=== PATIENT | female | born 1930 | race Caucasian/White ===

== ENCOUNTER 2017-12-17 15:05 | Inpatient (IN) ==
[2017-12-17] MEDS ORDERED: PANTOPRAZOLE 40 MG VIAL IV STA (15:36)
[2017-12-17] MEDS ORDERED: SODIUM CHLORIDE 0.9% 1,000 ML IV PRN (15:37)
[2017-12-17] MEDS ORDERED: PANTOPRAZOLE 40 MG VIAL IV ONE (16:06)
[2017-12-17 16:14] LABS: Basophils % 0.2 % (0.0-0.8); Hemoglobin 8.5 GM/DL (12.0-16.0); Immature Granulocytes % 0.5 %; Immature Granulocytes Absolute 0.05 #; Lymphocytes # 1.7 10*3/uL (1.4-4.0); Lymphocytes % 15.7 % (21.3-54.2); Mean Corpuscular HGB Conc 32.7 GM/DL (32-36); Mean Corpuscular Hemoglobin 31 PG (27-34); Mean Corpuscular Volume 93.9 FL (87-102); Mean Platelet Volume 9.1 FL (9.6-12.0); Monocytes # 0.6 10*3/uL (0.11-0.8); Monocytes % 5.4 % (1.7-12.7); Neutrophils # 8.3 10*3/uL (1.4-7.4); Neutrophils % 78.2 % (38.7-73.9); Platelet Count 227 T/CUMM (130-400); Red Blood Count 2.77 MC/CUMM (3.8-5.5); Red Cell Distribution Width 15.5 % (9.3-17.3); White Blood Count 10.6 T/CUMM (4-12)
[2017-12-17 16:30] LABS: PT Patient Result 10.2 SECS
[2017-12-17 16:33] LABS: Alanine Aminotransferase < 9 U/L (13-56); Albumin 3.2 G/DL (3.4-5.0); Alkaline Phosphatase 54 U/L (45-117); Aspartate Amino Transferase 20 U/L (0-37); Blood Urea Nitrogen 75 MG/DL (7-18); Calcium 8.4 MG/DL (8.5-10.1); Glucose 92 MG/DL (74-106); Magnesium 2.3 MG/DL (1.8-2.4); Osmolality,Calculated 300.4 MOS/KG (273-304); Potassium 4.1 MMOL/L (3.5-5.1); Sodium 140 MMOL/L (136-145); Total Protein 6.2 G/DL (6.4-8.3)
[2017-12-17] MEDS ORDERED: ONDANSETRON 4 MG/2 ML VIAL IV PRN (17:48)
[2017-12-17 21:42] LABS: Apearance,Urine CLEAR (Clear); Bacteria,Urine Occasional /HPF (Few); Bilirubin,Urine Negative (Negative); Blood, Urine Moderate mg/dL (Negative); Glucose,Urine (UA) Negative (Negative); Ketones,Urine Negative (Negative); Nitrite,Urine Negative (Negative); Protein,Urine Negative; RBC,Urine 7 /HPF (0-4); Squamous Epithelial Cell,Urine Occasional /HPF (0-10); Urine Color Yellow (Yellow); Urine Specific Gravity 1.012 (1.001-1.035); Urine Urobilinogen < 2.0 EU/DL (0.2-1.0); WBC,Urine 8 /HPF (0-6)
[2017-12-17] MEDS: METOPROLOL TARTRATE 50 MG TABLET PO SCH (21:59)
[2017-12-17] MEDS: PANTOPRAZOLE 40 MG VIAL IV SCH (21:59)
[2017-12-18 05:49] LABS: Basophils % 0.2 % (0.0-0.8); Eosinophils % 0.2 % (0.00-10.9); Hematocrit 29.3 VOL% (35.7-47.0); Immature Granulocytes % 0.5 %; Immature Granulocytes Absolute 0.05 #; Lymphocytes # 1.1 10*3/uL (1.4-4.0); Lymphocytes % 11.6 % (21.3-54.2); Mean Corpuscular HGB Conc 34.1 GM/DL (32-36); Mean Corpuscular Hemoglobin 30 PG (27-34); Mean Corpuscular Volume 89.1 FL (87-102); Mean Platelet Volume 9.5 FL (9.6-12.0); Monocytes # 0.8 10*3/uL (0.11-0.8); Monocytes % 8.9 % (1.7-12.7); Neutrophils # 7.2 10*3/uL (1.4-7.4); Neutrophils % 78.6 % (38.7-73.9); Platelet Count 160 T/CUMM (130-400); Red Blood Count 3.29 MC/CUMM (3.8-5.5); Red Cell Distribution Width 16.3 % (9.3-17.3); White Blood Count 9.2 T/CUMM (4-12)
[2017-12-18 06:17] LABS: Calcium 8.1 MG/DL (8.5-10.1); Osmolality,Calculated 295.3 MOS/KG (273-304); Potassium 3.6 MMOL/L (3.5-5.1)
[2017-12-18] MEDS: METOPROLOL TARTRATE 50 MG TABLET PO SCH ×2 (08:15→20:34)
[2017-12-18] MEDS: PANTOPRAZOLE 40 MG VIAL IV SCH ×2 (08:17→20:33)
[2017-12-18] MEDS: cefTRIAXone 1,000 MG in SYRINGE 1 EACH IV SCH (13:08)
[2017-12-18] MEDS: ISOSORBIDE MONONITRATE 30 MG TABLET PO SCH (14:39)
[2017-12-18] MEDS: DICLOFENAC 1% GEL 100 GM TUBE TOP SCH ×2 (16:09→20:37)
[2017-12-18] MEDS: CARBIDOPA/LEVODOPA 25-100 MG TABLET PO SCH (20:34)
[2017-12-18] MEDS: SIMVASTATIN 20 MG TABLET PO SCH (20:34)
[2017-12-19 05:22] LABS: Basophils % 0.5 % (0.0-0.8); Eosinophils # 0.1 10*3/uL (0.0-0.87); Eosinophils % 1.1 % (0.00-10.9); Hematocrit 26.9 VOL% (35.7-47.0); Hemoglobin 9.1 GM/DL (12.0-16.0); Immature Granulocytes % 0.4 %; Immature Granulocytes Absolute 0.02 #; Lymphocytes % 18.5 % (21.3-54.2); Mean Corpuscular HGB Conc 33.8 GM/DL (32-36); Mean Corpuscular Hemoglobin 31 PG (27-34); Mean Corpuscular Volume 91.5 FL (87-102); Mean Platelet Volume 9.2 FL (9.6-12.0); Monocytes # 0.7 10*3/uL (0.11-0.8); Monocytes % 12.4 % (1.7-12.7); Neutrophils # 3.7 10*3/uL (1.4-7.4); Neutrophils % 67.1 % (38.7-73.9); Platelet Count 146 T/CUMM (130-400); Red Blood Count 2.94 MC/CUMM (3.8-5.5); White Blood Count 5.6 T/CUMM (4-12)
[2017-12-19 05:59] LABS: Calcium 7.5 MG/DL (8.5-10.1); Osmolality,Calculated 285.4 MOS/KG (273-304); Potassium 3.2 MMOL/L (3.5-5.1)
[2017-12-19] MEDS: PANTOPRAZOLE 40 MG VIAL IV SCH ×2 (09:00→20:18)
[2017-12-19] MEDS: cefTRIAXone 1,000 MG in SYRINGE 1 EACH IV SCH (09:01)
[2017-12-19] MEDS: DICLOFENAC 1% GEL 100 GM TUBE TOP SCH ×3 (09:01→20:18)
[2017-12-19] MEDS ORDERED: LIDOCAINE 100 MG/5 ML SYRINGE ONE (11:40)
[2017-12-19] MEDS ORDERED: PROPOFOL 200 MG/20 ML VIAL IV ONE (11:40)
[2017-12-19] MEDS: CARBIDOPA/LEVODOPA 25-100 MG TABLET PO SCH ×2 (14:21→20:18)
[2017-12-19] MEDS: CHOLECALCIFEROL 1,000 UNIT TABLET PO SCH (14:21)
[2017-12-19] MEDS: METOPROLOL TARTRATE 50 MG TABLET PO SCH ×2 (14:22→20:18)
[2017-12-19] MEDS: ISOSORBIDE MONONITRATE 30 MG TABLET PO SCH (14:22)
[2017-12-19] MEDS: MAGNESIUM OXIDE 400 MG TABLET PO SCH (17:34)
[2017-12-19] MEDS: ACETAMINOPHEN 325 MG TABLET PO PRN (17:36)
[2017-12-19] MEDS: SIMVASTATIN 20 MG TABLET PO SCH (20:18)
[2017-12-20 08:08] LABS: Hematocrit 26.8 VOL% (35.7-47.0); Hemoglobin 8.9 GM/DL (12.0-16.0)
[2017-12-20] MEDS: ISOSORBIDE MONONITRATE 30 MG TABLET PO SCH (09:00)
[2017-12-20] MEDS: METOPROLOL TARTRATE 50 MG TABLET PO SCH ×2 (09:00→20:37)
[2017-12-20] MEDS: CHOLECALCIFEROL 1,000 UNIT TABLET PO SCH (09:00)
[2017-12-20] MEDS: MAGNESIUM OXIDE 400 MG TABLET PO SCH (09:01)
[2017-12-20] MEDS: CARBIDOPA/LEVODOPA 25-100 MG TABLET PO SCH ×2 (09:01→20:37)
[2017-12-20] MEDS: PANTOPRAZOLE 40 MG VIAL IV SCH ×2 (09:04→21:43)
[2017-12-20] MEDS: cefTRIAXone 1,000 MG in SYRINGE 1 EACH IV SCH (09:04)
[2017-12-20] MEDS: DICLOFENAC 1% GEL 100 GM TUBE TOP SCH ×3 (09:08→20:38)
[2017-12-20] MEDS: SIMVASTATIN 20 MG TABLET PO SCH (20:37)
[2017-12-20] MEDS: ACETAMINOPHEN 325 MG TABLET PO PRN (20:37)
[2017-12-21 06:02] LABS: Basophils % 0.4 % (0.0-0.8); Eosinophils # 0.1 10*3/uL (0.0-0.87); Eosinophils % 2.2 % (0.00-10.9); Hematocrit 26.6 VOL% (35.7-47.0); Hemoglobin 8.7 GM/DL (12.0-16.0); Immature Granulocytes % 0.4 %; Immature Granulocytes Absolute 0.02 #; Lymphocytes # 0.9 10*3/uL (1.4-4.0); Lymphocytes % 19.9 % (21.3-54.2); Mean Corpuscular HGB Conc 32.7 GM/DL (32-36); Mean Corpuscular Hemoglobin 30 PG (27-34); Mean Platelet Volume 9.3 FL (9.6-12.0); Monocytes # 0.5 10*3/uL (0.11-0.8); Monocytes % 11.7 % (1.7-12.7); Neutrophils % 65.4 % (38.7-73.9); Platelet Count 154 T/CUMM (130-400); Red Blood Count 2.86 MC/CUMM (3.8-5.5); Red Cell Distribution Width 15.5 % (9.3-17.3); White Blood Count 4.5 T/CUMM (4-12)
[2017-12-21 06:29] LABS: Calcium 7.8 MG/DL (8.5-10.1); Osmolality,Calculated 278.7 MOS/KG (273-304); Potassium 3.6 MMOL/L (3.5-5.1)
[2017-12-21] MEDS: CHOLECALCIFEROL 1,000 UNIT TABLET PO SCH (09:09)
[2017-12-21] MEDS: CARBIDOPA/LEVODOPA 25-100 MG TABLET PO SCH ×2 (09:09→20:31)
[2017-12-21] MEDS: MAGNESIUM OXIDE 400 MG TABLET PO SCH (09:09)
[2017-12-21] MEDS: ISOSORBIDE MONONITRATE 30 MG TABLET PO SCH (09:10)
[2017-12-21] MEDS: METOPROLOL TARTRATE 50 MG TABLET PO SCH ×2 (09:10→20:31)
[2017-12-21] MEDS: DICLOFENAC 1% GEL 100 GM TUBE TOP SCH ×3 (09:33→20:31)
[2017-12-21] MEDS: PANTOPRAZOLE 40 MG TABLET PO SCH ×2 (09:44→22:22)
[2017-12-21] MEDS: NISOLDIPINE 20 MG PO SCH (09:48)
[2017-12-21] MEDS: ACETAMINOPHEN 325 MG TABLET PO PRN ×2 (10:53→19:14)
[2017-12-21] MEDS: SIMVASTATIN 20 MG TABLET PO SCH (20:31)
[2017-12-21] MEDS: PANTOPRAZOLE 40 MG VIAL IV SCH (22:23)
[2017-12-21] MEDS: cefTRIAXone 1,000 MG in SYRINGE 1 EACH IV SCH (22:23)
[2017-12-22 05:32] LABS: Hematocrit 25.6 VOL% (35.7-47.0); Hemoglobin 8.9 GM/DL (12.0-16.0)
[2017-12-22] MEDS: MAGNESIUM OXIDE 400 MG TABLET PO SCH (08:52)
[2017-12-22] MEDS: CARBIDOPA/LEVODOPA 25-100 MG TABLET PO SCH (08:52)
[2017-12-22] MEDS: CHOLECALCIFEROL 1,000 UNIT TABLET PO SCH (08:53)
[2017-12-22] MEDS: ISOSORBIDE MONONITRATE 30 MG TABLET PO SCH (08:53)
[2017-12-22] MEDS: DICLOFENAC 1% GEL 100 GM TUBE TOP SCH (08:54)
[2017-12-22] MEDS: METOPROLOL TARTRATE 50 MG TABLET PO SCH (08:54)
[2017-12-22] MEDS: NISOLDIPINE 20 MG PO SCH (08:54)
[2017-12-22] MEDS: PANTOPRAZOLE 40 MG TABLET PO SCH (08:54)
[2017-12-22] MEDS ORDERED: POLYETHYLENE GLYCOL POWDER 17 GM PACK PO SCH (10:30)
[2017-12-22] MEDS ORDERED: MAGNESIUM HYDROXIDE SUSP 30 ML UDCUP PO ONE (10:48)
[2017-12-22 11:58] VITALS: BP 159/79
== END 2017-12-22 14:41 | DRG 378 ==
LOC: EDUNIT# → EDBD → N.ED 15:05 → SUATTDRO 17:02 → N.EDINP 17:02 → N.2E 20:09
PROVIDERS: ADMIT Internal Medicine; ATTEND Internal Medicine Geriatric Medicine

== ENCOUNTER 2018-02-23 19:31 | Inpatient (IN) ==
[2018-02-23] MEDS ORDERED: ONDANSETRON 4 MG/2 ML VIAL IV PRN (22:28)
[2018-02-23] MEDS: METOPROLOL TARTRATE 50 MG TABLET PO SCH (23:29)
[2018-02-23] MEDS: CARBIDOPA/LEVODOPA 25-100 MG TABLET PO SCH (23:29)
[2018-02-23] MEDS: SIMVASTATIN 20 MG TABLET PO SCH (23:29)
[2018-02-23] MEDS: ACETAMINOPHEN 325 MG TABLET PO PRN (23:31)
[2018-02-24 04:43] LABS: Basophils % 0.1 % (0.0-0.8); Hematocrit 34.2 VOL% (35.7-47.0); Hemoglobin 12.1 GM/DL (12.0-16.0); Immature Granulocytes % 1.4 %; Immature Granulocytes Absolute 0.13 #; Lymphocytes # 1.1 10*3/uL (1.4-4.0); Mean Corpuscular HGB Conc 35.4 GM/DL (32-36); Mean Corpuscular Hemoglobin 29 PG (27-34); Mean Corpuscular Volume 80.5 FL (87-102); Mean Platelet Volume 9.1 FL (9.6-12.0); Monocytes # 0.4 10*3/uL (0.11-0.8); Monocytes % 4.7 % (1.7-12.7); Neutrophils # 7.7 10*3/uL (1.4-7.4); Neutrophils % 81.8 % (38.7-73.9); Platelet Count 459 T/CUMM (130-400); Red Blood Count 4.25 MC/CUMM (3.8-5.5); White Blood Count 9.4 T/CUMM (4-12)
[2018-02-24 05:36] LABS: Calcium 9.5 MG/DL (8.5-10.1); Osmolality,Calculated 270.8 MOS/KG (273-304); Potassium 4.1 MMOL/L (3.5-5.1); Risk Ratio 2.58; VLDL CHOLESTEROL 18.6 MG/DL
[2018-02-24] MEDS: ISOSORBIDE MONONITRATE 30 MG TABLET PO SCH (09:05)
[2018-02-24] MEDS: CHOLECALCIFEROL 1,000 UNIT TABLET PO SCH (09:05)
[2018-02-24] MEDS: CETIRIZINE 10 MG TABLET PO SCH (09:05)
[2018-02-24] MEDS: PANTOPRAZOLE 40 MG TABLET PO SCH (09:05)
[2018-02-24] MEDS: MULTIVITAMIN (CENTRUM) TABLET PO SCH (09:05)
[2018-02-24] MEDS: METOPROLOL TARTRATE 50 MG TABLET PO SCH ×2 (09:06→20:59)
[2018-02-24] MEDS: MAGNESIUM OXIDE 400 MG TABLET PO SCH (09:06)
[2018-02-24] MEDS: CARBIDOPA/LEVODOPA 25-100 MG TABLET PO SCH ×2 (09:06→21:00)
[2018-02-24] MEDS: ASPIRIN EC 81 MG TABLET PO SCH (09:06)
[2018-02-24] MEDS: ENOXAPARIN 40 MG/0.4 ML SYRINGE SUBCUT SCH (09:06)
[2018-02-24] MEDS: DICLOFENAC 1% GEL 100 GM TUBE TOP SCH ×4 (10:43→21:00)
[2018-02-24] MEDS: SODIUM CHLORIDE 0.9% 1,000 ML IV SCH ×2 (10:43→19:03)
[2018-02-24] MEDS: ACETAMINOPHEN 325 MG TABLET PO PRN (15:42)
[2018-02-24] MEDS: SIMVASTATIN 20 MG TABLET PO SCH (20:59)
[2018-02-24] MEDS: GABAPENTIN 300 MG CAPSULE PO SCH (20:59)
[2018-02-24] MEDS ORDERED: NISOLDIPINE 20 MG PO SCH (21:00)
[2018-02-25] MEDS: SODIUM CHLORIDE 0.9% 1,000 ML IV SCH ×2 (01:01→10:01)
[2018-02-25 05:16] LABS: Basophils % 0.1 % (0.0-0.8); Eosinophils % 0.1 % (0.00-10.9); Hematocrit 30.4 VOL% (35.7-47.0); Hemoglobin 10.1 GM/DL (12.0-16.0); Immature Granulocytes % 2.1 %; Immature Granulocytes Absolute 0.22 #; Lymphocytes # 2.1 10*3/uL (1.4-4.0); Lymphocytes % 19.6 % (21.3-54.2); Mean Corpuscular HGB Conc 33.2 GM/DL (32-36); Mean Corpuscular Hemoglobin 29 PG (27-34); Mean Corpuscular Volume 85.6 FL (87-102); Mean Platelet Volume 9.2 FL (9.6-12.0); Monocytes # 1.2 10*3/uL (0.11-0.8); Neutrophils # 7.2 10*3/uL (1.4-7.4); Neutrophils % 67.1 % (38.7-73.9); Platelet Count 301 T/CUMM (130-400); Red Blood Count 3.55 MC/CUMM (3.8-5.5); Red Cell Distribution Width 15.7 % (9.3-17.3); White Blood Count 10.7 T/CUMM (4-12)
[2018-02-25 05:46] LABS: Calcium 8.4 MG/DL (8.5-10.1); Osmolality,Calculated 276.1 MOS/KG (273-304); Potassium 3.7 MMOL/L (3.5-5.1)
[2018-02-25] MEDS: MAGNESIUM OXIDE 400 MG TABLET PO SCH (09:00)
[2018-02-25] MEDS: ASPIRIN EC 81 MG TABLET PO SCH (09:00)
[2018-02-25] MEDS: GABAPENTIN 300 MG CAPSULE PO SCH (09:00)
[2018-02-25] MEDS: MULTIVITAMIN (CENTRUM) TABLET PO SCH (09:00)
[2018-02-25] MEDS: METOPROLOL TARTRATE 50 MG TABLET PO SCH (09:00)
[2018-02-25] MEDS: CHOLECALCIFEROL 1,000 UNIT TABLET PO SCH (09:01)
[2018-02-25] MEDS: DICLOFENAC 1% GEL 100 GM TUBE TOP SCH ×2 (09:01→14:38)
[2018-02-25] MEDS: CETIRIZINE 10 MG TABLET PO SCH (09:01)
[2018-02-25] MEDS: ISOSORBIDE MONONITRATE 30 MG TABLET PO SCH (09:01)
[2018-02-25] MEDS: PANTOPRAZOLE 40 MG TABLET PO SCH (09:01)
[2018-02-25] MEDS: ENOXAPARIN 40 MG/0.4 ML SYRINGE SUBCUT SCH (09:01)
[2018-02-25] MEDS: CARBIDOPA/LEVODOPA 25-100 MG TABLET PO SCH (09:01)
[2018-02-25] MEDS: ACETAMINOPHEN 325 MG TABLET PO PRN (15:29)
[2018-02-25 17:03] VITALS: BP 145/79
== END 2018-02-25 17:40 | DRG 65 ==
LOC: N.TELEN 21:09 → SUATTDRO 21:09
PROVIDERS: ADMIT Internal Medicine; ATTEND Internal Medicine

== ENCOUNTER 2018-03-22 08:28 | Inpatient (IN) ==
[2018-03-22 10:25] LABS: Apearance,Urine CLEAR (Clear); Bilirubin,Urine Negative (Negative); Blood, Urine Negative (Negative); Glucose,Urine (UA) Negative (Negative); Ketones,Urine Negative (Negative); Nitrite,Urine Negative (Negative); Protein,Urine Negative; RBC,Urine <1 /HPF (0-4); Urine Color Straw (Yellow); Urine Specific Gravity 1.012 (1.001-1.035); Urine Urobilinogen < 2.0 EU/DL (0.2-1.0); WBC,Urine 1 /HPF (0-6)
[2018-03-22 10:42] LABS: Basophils # 0.1 10*3/uL (0.0-0.2); Basophils % 0.5 % (0.0-0.8); Eosinophils # 0.2 10*3/uL (0.0-0.87); Eosinophils % 1.5 % (0.00-10.9); Hemoglobin 9.3 GM/DL (12.0-16.0); Immature Granulocytes % 4.9 %; Lymphocytes % 9.5 % (21.3-54.2); Mean Corpuscular HGB Conc 32.1 GM/DL (32-36); Mean Corpuscular Hemoglobin 27 PG (27-34); Mean Corpuscular Volume 84.3 FL (87-102); Mean Platelet Volume 8.3 FL (9.6-12.0); Monocytes # 1.1 10*3/uL (0.11-0.8); Monocytes % 10.3 % (1.7-12.7); Neutrophils # 7.5 10*3/uL (1.4-7.4); Neutrophils % 73.3 % (38.7-73.9); Platelet Count 599 T/CUMM (130-400); Red Blood Count 3.44 MC/CUMM (3.8-5.5); Red Cell Distribution Width 17.5 % (9.3-17.3); White Blood Count 10.2 T/CUMM (4-12)
[2018-03-22 10:50] LABS: INR 1.1; PT Patient Result 11.4 SECS; Partial Thromboplastin Time 29.3 SECS (0-40)
[2018-03-22 11:00] LABS: Albumin 2.5 G/DL (3.4-5.0); Bilirubin,Total 0.5 MG/DL (0.2-1.0); Calcium 8.8 MG/DL (8.5-10.1); Total Protein 7.1 G/DL (6.4-8.3)
[2018-03-22 11:01] LABS: Osmolality,Calculated 271.2 MOS/KG (273-304); Potassium 3.6 MMOL/L (3.5-5.1)
[2018-03-22 11:07] LABS: Lactic Acid 1.2 MMOL/L (0.4-2.0)
[2018-03-22] MEDS ORDERED: ONDANSETRON 4 MG/2 ML VIAL IV STA (11:54)
[2018-03-22] MEDS ORDERED: LACTATED RINGERS 1,000 ML IV ONE (11:54)
[2018-03-22] MEDS ORDERED: cefTRIAXone 2,000 MG in SODIUM CHLORIDE 0.9% 100 ML IV STA (11:54)
[2018-03-22] MEDS ORDERED: VANCOMYCIN INJ 1,000 MG in SODIUM CHLORIDE 0.9% 250 ML IV STA (11:54)
[2018-03-22] MEDS ORDERED: fentaNYL 100 MCG/2 ML VIAL IV STA (11:54)
[2018-03-22] MEDS ORDERED: cefTRIAXone 2,000 MG in SYRINGE 1 EACH IV STA (13:08)
[2018-03-22] MEDS ORDERED: ALBUTEROL 2.5 MG/3 ML NEB RESP TX PRN (13:34)
[2018-03-22] MEDS ORDERED: hydrALAZINE 20 MG/1 ML VIAL IV PRN (13:39)
[2018-03-22] MEDS: metroNIDAZOLE INJ 500 MG in PREMIX 1 EACH IV SCH ×3 (14:23→21:38)
[2018-03-22 15:03] LABS: ABG Base Excess 0.4 MMOL/L (-2.5-2.5); ABG HCO3 24.8 MMOL/L (20-26); ABG Oxygen Saturation 96.9 % (95-100); ABG PCO2 30.9 MM HG (35-48); ABG PH 7.485 (7.35-7.45); ABG PO2 82.7 MM HG (80-95); ABG TCO2 21.3 MMOL/L (23-27); Allen Test Positive; Pt O2 Delivery Device Room Air
[2018-03-22] MEDS: oxyCODONE IR 5 MG TABLET PO PRN (18:45)
[2018-03-22] MEDS: ALBUTEROL/IPRATROPIUM 3 ML NEB RESP TX SCH (19:51)
[2018-03-22] MEDS: METOPROLOL TARTRATE 50 MG TABLET PO SCH (21:38)
[2018-03-22] MEDS: CARBIDOPA/LEVODOPA 25-100 MG TABLET PO SCH (21:38)
[2018-03-22] MEDS: ACETAMINOPHEN 500 MG TABLET PO SCH (21:47)
[2018-03-23] MEDS: ALBUTEROL/IPRATROPIUM 3 ML NEB RESP TX SCH ×4 (01:22→19:45)
[2018-03-23 06:44] LABS: Basophils # 0.1 10*3/uL (0.0-0.2); Eosinophils # 0.1 10*3/uL (0.0-0.87); Eosinophils % 1.7 % (0.00-10.9); Hematocrit 29.3 VOL% (35.7-47.0); Hemoglobin 9.2 GM/DL (12.0-16.0); Immature Granulocytes % 3.6 %; Lymphocytes % 11.4 % (21.3-54.2); Mean Corpuscular HGB Conc 31.4 GM/DL (32-36); Mean Corpuscular Hemoglobin 27 PG (27-34); Mean Corpuscular Volume 85.9 FL (87-102); Mean Platelet Volume 8.6 FL (9.6-12.0); Monocytes # 0.9 10*3/uL (0.11-0.8); Neutrophils % 71.3 % (38.7-73.9); Platelet Count 542 T/CUMM (130-400); Red Blood Count 3.41 MC/CUMM (3.8-5.5); Red Cell Distribution Width 17.7 % (9.3-17.3); White Blood Count 8.4 T/CUMM (4-12)
[2018-03-23] MEDS: metroNIDAZOLE INJ 500 MG in PREMIX 1 EACH IV SCH ×3 (07:14→22:00)
[2018-03-23 07:21] LABS: Albumin 2.1 G/DL (3.4-5.0); Bilirubin,Total 1.4 MG/DL (0.2-1.0); Calcium 8.7 MG/DL (8.5-10.1); Osmolality,Calculated 275.7 MOS/KG (273-304); Potassium 4.3 MMOL/L (3.5-5.1); Total Protein 6.6 G/DL (6.4-8.3)
[2018-03-23] MEDS: ACETAMINOPHEN 500 MG TABLET PO SCH ×3 (08:06→22:00)
[2018-03-23] MEDS: METOPROLOL TARTRATE 50 MG TABLET PO SCH ×2 (08:15→20:20)
[2018-03-23] MEDS: amLODIPine 10 MG TABLET PO SCH (08:15)
[2018-03-23] MEDS: CARBIDOPA/LEVODOPA 25-100 MG TABLET PO SCH ×2 (08:15→20:20)
[2018-03-23] MEDS: cefTRIAXone 1,000 MG in SYRINGE 1 EACH IV SCH (08:32)
[2018-03-23] MEDS: oxyCODONE IR 5 MG TABLET PO PRN ×2 (08:33→20:20)
[2018-03-23] MEDS ORDERED: ZIPRASIDONE 20 MG CAPSULE PO PRN (09:01)
[2018-03-23] MEDS: ZIPRASIDONE 20 MG/1 ML VIAL IM PRN ×2 (09:52→17:50)
[2018-03-23] MEDS: VANCOMYCIN INJ 750 MG in SODIUM CHLORIDE 0.9% 250 ML IV SCH (14:25)
[2018-03-23] MEDS: LACTATED RINGERS 1,000 ML IV SCH (14:25)
[2018-03-24] MEDS: ALBUTEROL/IPRATROPIUM 3 ML NEB RESP TX SCH ×4 (01:01→18:59)
[2018-03-24] MEDS: ZIPRASIDONE 20 MG/1 ML VIAL IM PRN (01:30)
[2018-03-24] MEDS: LACTATED RINGERS 1,000 ML IV SCH ×2 (05:50→13:23)
[2018-03-24] MEDS: metroNIDAZOLE INJ 500 MG in PREMIX 1 EACH IV SCH (05:52)
[2018-03-24] MEDS: ACETAMINOPHEN 500 MG TABLET PO SCH ×3 (05:53→22:54)
[2018-03-24 06:54] LABS: Basophils # 0.1 10*3/uL (0.0-0.2); Basophils % 0.7 % (0.0-0.8); Eosinophils # 0.1 10*3/uL (0.0-0.87); Eosinophils % 1.5 % (0.00-10.9); Hematocrit 30.5 VOL% (35.7-47.0); Immature Granulocytes % 2.9 %; Immature Granulocytes Absolute 0.22 #; Lymphocytes # 0.9 10*3/uL (1.4-4.0); Lymphocytes % 11.4 % (21.3-54.2); Mean Corpuscular HGB Conc 32.8 GM/DL (32-36); Mean Corpuscular Hemoglobin 28 PG (27-34); Mean Corpuscular Volume 83.8 FL (87-102); Mean Platelet Volume 9.2 FL (9.6-12.0); Monocytes # 0.8 10*3/uL (0.11-0.8); Neutrophils # 5.5 10*3/uL (1.4-7.4); Neutrophils % 73.5 % (38.7-73.9); Platelet Count 503 T/CUMM (130-400); Red Blood Count 3.64 MC/CUMM (3.8-5.5); Red Cell Distribution Width 17.8 % (9.3-17.3); White Blood Count 7.5 T/CUMM (4-12)
[2018-03-24 07:30] LABS: Alanine Aminotransferase < 9 U/L (13-56); Albumin 2.3 G/DL (3.4-5.0); Alkaline Phosphatase 88 U/L (45-117); Aspartate Amino Transferase 19 U/L (0-37); Blood Urea Nitrogen 16 MG/DL (7-18); Calcium 8.6 MG/DL (8.5-10.1); Glucose 86 MG/DL (74-106); Osmolality,Calculated 272.8 MOS/KG (273-304); Potassium 3.6 MMOL/L (3.5-5.1); Sodium 137 MMOL/L (136-145); Total Protein 6.9 G/DL (6.4-8.3)
[2018-03-24] MEDS: cefTRIAXone 1,000 MG in SYRINGE 1 EACH IV SCH (08:55)
[2018-03-24] MEDS: CARBIDOPA/LEVODOPA 25-100 MG TABLET PO SCH ×2 (08:58→20:24)
[2018-03-24] MEDS: amLODIPine 10 MG TABLET PO SCH (08:58)
[2018-03-24] MEDS: METOPROLOL TARTRATE 50 MG TABLET PO SCH ×2 (08:58→20:23)
[2018-03-24] MEDS ORDERED: METOPROLOL TARTRATE 5 MG/5 ML VIAL IV ONE (09:29)
[2018-03-24] MEDS: METOPROLOL TARTRATE 5 MG/5 ML VIAL IV SCH ×3 (09:32→20:23)
[2018-03-24] MEDS: VANCOMYCIN INJ 750 MG in SODIUM CHLORIDE 0.9% 250 ML IV SCH (13:23)
[2018-03-24] MEDS: CLINDAMYCIN INJ 600 MG in PREMIX 1 EACH IV SCH ×2 (14:50→22:56)
[2018-03-25 00:14] LABS: HIV Antigen/Antibody Result Nonreactive (Nonreactive); Hepatitis B Surface Ag Quant < 0.10 Index; Hepatitis B Surface Ag Result Negative (Negative); Hepatitis C Virus Ab Quant 0.18 Index; Hepatitis C Virus Ab Result Negative (Negative)
[2018-03-25] MEDS: LACTATED RINGERS 1,000 ML IV SCH ×2 (01:55→22:04)
[2018-03-25] MEDS: METOPROLOL TARTRATE 5 MG/5 ML VIAL IV SCH ×4 (01:59→20:14)
[2018-03-25] MEDS: ACETAMINOPHEN 500 MG TABLET PO SCH ×3 (05:53→22:04)
[2018-03-25] MEDS: CLINDAMYCIN INJ 600 MG in PREMIX 1 EACH IV SCH ×3 (05:53→22:30)
[2018-03-25] MEDS: ALBUTEROL/IPRATROPIUM 3 ML NEB RESP TX SCH ×4 (06:57→18:59)
[2018-03-25 07:45] LABS: Basophils # 0.1 10*3/uL (0.0-0.2); Basophils % 0.6 % (0.0-0.8); Eosinophils # 0.1 10*3/uL (0.0-0.87); Eosinophils % 0.8 % (0.00-10.9); Hematocrit 25.5 VOL% (35.7-47.0); Hemoglobin 8.1 GM/DL (12.0-16.0); Immature Granulocytes % 1.2 %; Immature Granulocytes Absolute 0.12 #; Lymphocytes # 0.9 10*3/uL (1.4-4.0); Lymphocytes % 8.9 % (21.3-54.2); Mean Corpuscular HGB Conc 31.8 GM/DL (32-36); Mean Corpuscular Hemoglobin 27 PG (27-34); Mean Corpuscular Volume 85.6 FL (87-102); Mean Platelet Volume 8.5 FL (9.6-12.0); Monocytes % 9.7 % (1.7-12.7); Neutrophils # 7.8 10*3/uL (1.4-7.4); Neutrophils % 78.8 % (38.7-73.9); Platelet Count 467 T/CUMM (130-400); Red Blood Count 2.98 MC/CUMM (3.8-5.5); Red Cell Distribution Width 18.2 % (9.3-17.3); White Blood Count 9.9 T/CUMM (4-12)
[2018-03-25 08:21] LABS: Osmolality,Calculated 279.4 MOS/KG (273-304); Potassium 3.1 MMOL/L (3.5-5.1)
[2018-03-25] MEDS ORDERED: PROPOFOL 200 MG/20 ML VIAL IV ONE (10:49)
[2018-03-25] MEDS ORDERED: LIDOCAINE 2% 5 ML VIAL ONE (10:49)
[2018-03-25] MEDS: METOPROLOL TARTRATE 50 MG TABLET PO SCH ×2 (17:16→20:13)
[2018-03-25] MEDS: CARBIDOPA/LEVODOPA 25-100 MG TABLET PO SCH ×2 (17:16→20:13)
[2018-03-25] MEDS: amLODIPine 10 MG TABLET PO SCH (17:17)
[2018-03-26] MEDS: ALBUTEROL/IPRATROPIUM 3 ML NEB RESP TX SCH ×4 (00:31→19:00)
[2018-03-26] MEDS: LACTATED RINGERS 1,000 ML IV SCH ×4 (01:50→17:30)
[2018-03-26] MEDS: METOPROLOL TARTRATE 5 MG/5 ML VIAL IV SCH ×4 (02:32→21:01)
[2018-03-26] MEDS: ACETAMINOPHEN 500 MG TABLET PO SCH ×3 (05:15→21:11)
[2018-03-26] MEDS: CLINDAMYCIN INJ 600 MG in PREMIX 1 EACH IV SCH ×3 (05:20→21:11)
[2018-03-26 07:27] LABS: Basophils # 0.1 10*3/uL (0.0-0.2); Basophils % 1.1 % (0.0-0.8); Eosinophils # 0.1 10*3/uL (0.0-0.87); Eosinophils % 1.6 % (0.00-10.9); Hematocrit 27.9 VOL% (35.7-47.0); Hemoglobin 8.7 GM/DL (12.0-16.0); Immature Granulocytes % 1.3 %; Immature Granulocytes Absolute 0.07 #; Lymphocytes # 0.9 10*3/uL (1.4-4.0); Lymphocytes % 16.8 % (21.3-54.2); Mean Corpuscular HGB Conc 31.2 GM/DL (32-36); Mean Corpuscular Hemoglobin 27 PG (27-34); Mean Corpuscular Volume 85.8 FL (87-102); Mean Platelet Volume 8.9 FL (9.6-12.0); Monocytes # 0.7 10*3/uL (0.11-0.8); Monocytes % 13.3 % (1.7-12.7); Neutrophils # 3.6 10*3/uL (1.4-7.4); Neutrophils % 65.9 % (38.7-73.9); Platelet Count 433 T/CUMM (130-400); Red Blood Count 3.25 MC/CUMM (3.8-5.5); Red Cell Distribution Width 18.5 % (9.3-17.3); White Blood Count 5.5 T/CUMM (4-12)
[2018-03-26 07:53] LABS: Calcium 8.1 MG/DL (8.5-10.1); Osmolality,Calculated 280.3 MOS/KG (273-304)
[2018-03-26] MEDS: amLODIPine 10 MG TABLET PO SCH (09:00)
[2018-03-26] MEDS: CARBIDOPA/LEVODOPA 25-100 MG TABLET PO SCH ×2 (09:00→21:11)
[2018-03-26] MEDS: METOPROLOL TARTRATE 50 MG TABLET PO SCH ×2 (11:09→21:11)
[2018-03-26] MEDS: ONDANSETRON 4 MG/2 ML VIAL IV PRN ×2 (12:42→21:33)
[2018-03-26] MEDS: POTASSIUM CHLORIDE RIDER 10 MEQ in PREMIX 1 EACH IV PRN ×5 (15:22→22:00)
[2018-03-27] MEDS: ALBUTEROL/IPRATROPIUM 3 ML NEB RESP TX SCH ×4 (00:34→20:12)
[2018-03-27] MEDS: METOPROLOL TARTRATE 5 MG/5 ML VIAL IV SCH ×3 (02:40→14:48)
[2018-03-27] MEDS: CLINDAMYCIN INJ 600 MG in PREMIX 1 EACH IV SCH ×3 (05:15→21:45)
[2018-03-27] MEDS: ACETAMINOPHEN 500 MG TABLET PO SCH ×3 (05:15→21:49)
[2018-03-27 05:47] LABS: Basophils # 0.1 10*3/uL (0.0-0.2); Basophils % 1.4 % (0.0-0.8); Eosinophils # 0.2 10*3/uL (0.0-0.87); Eosinophils % 3.7 % (0.00-10.9); Hematocrit 28.4 VOL% (35.7-47.0); Hemoglobin 9.5 GM/DL (12.0-16.0); Immature Granulocytes Absolute 0.06 #; Lymphocytes # 1.1 10*3/uL (1.4-4.0); Lymphocytes % 19.4 % (21.3-54.2); Mean Corpuscular HGB Conc 33.5 GM/DL (32-36); Mean Corpuscular Hemoglobin 28 PG (27-34); Mean Corpuscular Volume 82.3 FL (87-102); Mean Platelet Volume 9.1 FL (9.6-12.0); Monocytes # 0.8 10*3/uL (0.11-0.8); Monocytes % 14.3 % (1.7-12.7); Neutrophils # 3.4 10*3/uL (1.4-7.4); Neutrophils % 60.2 % (38.7-73.9); Platelet Count 461 T/CUMM (130-400); Red Blood Count 3.45 MC/CUMM (3.8-5.5); Red Cell Distribution Width 18.6 % (9.3-17.3); White Blood Count 5.7 T/CUMM (4-12)
[2018-03-27 06:23] LABS: Calcium 8.6 MG/DL (8.5-10.1); Osmolality,Calculated 268.1 MOS/KG (273-304); Potassium 3.4 MMOL/L (3.5-5.1)
[2018-03-27] MEDS: POTASSIUM CHLORIDE RIDER 10 MEQ in PREMIX 1 EACH IV PRN (06:32)
[2018-03-27] MEDS: LACTATED RINGERS 1,000 ML IV SCH ×2 (06:37→13:26)
[2018-03-27] MEDS: amLODIPine 10 MG TABLET PO SCH (08:54)
[2018-03-27] MEDS: CARBIDOPA/LEVODOPA 25-100 MG TABLET PO SCH ×2 (08:54→21:46)
[2018-03-27] MEDS: METOPROLOL TARTRATE 50 MG TABLET PO SCH ×2 (08:54→21:46)
[2018-03-27] MEDS: POTASSIUM CHLORIDE 20 MEQ TABLET PO PRN ×3 (08:55→13:21)
[2018-03-27] MEDS: ONDANSETRON 4 MG/2 ML VIAL IV PRN (09:23)
[2018-03-27] MEDS: APIXABAN 2.5 MG TABLET PO SCH (21:46)
[2018-03-27] MEDS: GABAPENTIN 300 MG CAPSULE PO SCH (21:46)
[2018-03-28] MEDS: ALBUTEROL/IPRATROPIUM 3 ML NEB RESP TX SCH ×4 (00:52→20:14)
[2018-03-28] MEDS: LACTATED RINGERS 1,000 ML IV SCH ×2 (02:47→18:16)
[2018-03-28] MEDS: ONDANSETRON 4 MG/2 ML VIAL IV PRN (05:53)
[2018-03-28] MEDS: CLINDAMYCIN INJ 600 MG in PREMIX 1 EACH IV SCH ×3 (05:56→21:13)
[2018-03-28] MEDS: ACETAMINOPHEN 500 MG TABLET PO SCH ×3 (05:57→21:12)
[2018-03-28 07:00] LABS: Basophils # 0.1 10*3/uL (0.0-0.2); Basophils % 1.3 % (0.0-0.8); Eosinophils # 0.2 10*3/uL (0.0-0.87); Eosinophils % 3.5 % (0.00-10.9); Hematocrit 28.7 VOL% (35.7-47.0); Hemoglobin 9.4 GM/DL (12.0-16.0); Immature Granulocytes % 1.1 %; Immature Granulocytes Absolute 0.06 #; Lymphocytes % 18.6 % (21.3-54.2); Mean Corpuscular HGB Conc 32.8 GM/DL (32-36); Mean Corpuscular Hemoglobin 27 PG (27-34); Mean Corpuscular Volume 82.9 FL (87-102); Mean Platelet Volume 9.8 FL (9.6-12.0); Monocytes # 0.7 10*3/uL (0.11-0.8); Monocytes % 12.2 % (1.7-12.7); NRBC # 0.03 10*3/uL; Neutrophils # 3.5 10*3/uL (1.4-7.4); Neutrophils % 63.3 % (38.7-73.9); Platelet Count 408 T/CUMM (130-400); Red Blood Count 3.46 MC/CUMM (3.8-5.5); Red Cell Distribution Width 18.9 % (9.3-17.3); White Blood Count 5.5 T/CUMM (4-12)
[2018-03-28 07:35] LABS: Calcium 8.5 MG/DL (8.5-10.1); Osmolality,Calculated 269.1 MOS/KG (273-304); Potassium 3.8 MMOL/L (3.5-5.1)
[2018-03-28] MEDS: amLODIPine 10 MG TABLET PO SCH (10:14)
[2018-03-28] MEDS: ISOSORBIDE MONONITRATE 30 MG TABLET PO SCH (10:14)
[2018-03-28] MEDS: METOPROLOL TARTRATE 50 MG TABLET PO SCH ×2 (10:14→21:13)
[2018-03-28] MEDS: APIXABAN 2.5 MG TABLET PO SCH ×2 (10:14→21:12)
[2018-03-28] MEDS: CARBIDOPA/LEVODOPA 25-100 MG TABLET PO SCH ×2 (10:14→21:12)
[2018-03-28] MEDS: GABAPENTIN 300 MG CAPSULE PO SCH (21:13)
[2018-03-29] MEDS: ALBUTEROL/IPRATROPIUM 3 ML NEB RESP TX SCH ×4 (01:18→19:20)
[2018-03-29] MEDS: ACETAMINOPHEN 500 MG TABLET PO SCH ×3 (05:15→21:14)
[2018-03-29] MEDS: CLINDAMYCIN INJ 600 MG in PREMIX 1 EACH IV SCH ×3 (05:16→21:14)
[2018-03-29] MEDS: METOPROLOL TARTRATE 50 MG TABLET PO SCH ×2 (09:17→20:08)
[2018-03-29] MEDS: LACTATED RINGERS 1,000 ML IV SCH (09:17)
[2018-03-29] MEDS: APIXABAN 2.5 MG TABLET PO SCH ×2 (09:17→20:08)
[2018-03-29] MEDS: amLODIPine 10 MG TABLET PO SCH (09:17)
[2018-03-29] MEDS: MAGNESIUM OXIDE 400 MG TABLET PO SCH ×3 (09:17→20:08)
[2018-03-29] MEDS: CARBIDOPA/LEVODOPA 25-100 MG TABLET PO SCH ×2 (09:17→20:08)
[2018-03-29] MEDS: ISOSORBIDE MONONITRATE 30 MG TABLET PO SCH (09:17)
[2018-03-29 10:47] LABS: Calcium 8.2 MG/DL (8.5-10.1); Osmolality,Calculated 268.2 MOS/KG (273-304)
[2018-03-29] MEDS: GABAPENTIN 300 MG CAPSULE PO SCH (20:08)
[2018-03-30] MEDS: ALBUTEROL/IPRATROPIUM 3 ML NEB RESP TX SCH ×4 (00:45→19:29)
[2018-03-30] MEDS: LACTATED RINGERS 1,000 ML IV SCH ×2 (03:20→09:02)
[2018-03-30] MEDS: ACETAMINOPHEN 500 MG TABLET PO SCH ×3 (05:49→23:36)
[2018-03-30 06:21] LABS: Calcium 8.2 MG/DL (8.5-10.1); Osmolality,Calculated 268.4 MOS/KG (273-304); Potassium 3.7 MMOL/L (3.5-5.1)
[2018-03-30] MEDS: CLINDAMYCIN INJ 600 MG in PREMIX 1 EACH IV SCH ×2 (07:57→14:54)
[2018-03-30] MEDS: POTASSIUM CHLORIDE 20 MEQ TABLET PO PRN (09:08)
[2018-03-30] MEDS: amLODIPine 10 MG TABLET PO SCH (09:08)
[2018-03-30] MEDS: APIXABAN 2.5 MG TABLET PO SCH (09:09)
[2018-03-30] MEDS: CARBIDOPA/LEVODOPA 25-100 MG TABLET PO SCH ×2 (09:09→23:36)
[2018-03-30] MEDS: ISOSORBIDE MONONITRATE 30 MG TABLET PO SCH (09:09)
[2018-03-30] MEDS: MAGNESIUM OXIDE 400 MG TABLET PO SCH ×3 (09:09→23:36)
[2018-03-30] MEDS: METOPROLOL TARTRATE 50 MG TABLET PO SCH ×2 (09:10→23:37)
[2018-03-30] MEDS ORDERED: MAGNESIUM SULF RIDER 4 GM in PREMIX 1 EACH IV PRN (10:36)
[2018-03-30] MEDS ORDERED: MAGNESIUM SULF RIDER 2 GM in PREMIX 1 EACH IV PRN (10:36)
[2018-03-30] MEDS ORDERED: ONDANSETRON ODT 4 MG TABLET PO PRN (13:31)
[2018-03-30] MEDS ORDERED: ZINC OXIDE PASTE 113 GM TUBE TOP PRN (18:56)
[2018-03-30] MEDS: GABAPENTIN 300 MG CAPSULE PO SCH (23:37)
[2018-03-31] MEDS: ALBUTEROL/IPRATROPIUM 3 ML NEB RESP TX SCH ×2 (00:46→08:23)
[2018-03-31] MEDS: ACETAMINOPHEN 500 MG TABLET PO SCH ×2 (05:50→14:54)
[2018-03-31 07:28] LABS: Basophils % 0.6 % (0.0-0.8); Eosinophils # 0.2 10*3/uL (0.0-0.87); Eosinophils % 3.9 % (0.00-10.9); Hematocrit 29.3 VOL% (35.7-47.0); Hemoglobin 9.6 GM/DL (12.0-16.0); Immature Granulocytes Absolute 0.06 #; Lymphocytes % 16.5 % (21.3-54.2); Mean Corpuscular HGB Conc 32.8 GM/DL (32-36); Mean Corpuscular Hemoglobin 28 PG (27-34); Mean Corpuscular Volume 85.4 FL (87-102); Mean Platelet Volume 9.3 FL (9.6-12.0); Monocytes # 0.6 10*3/uL (0.11-0.8); Neutrophils # 4.2 10*3/uL (1.4-7.4); Platelet Count 418 T/CUMM (130-400); Red Blood Count 3.43 MC/CUMM (3.8-5.5); Red Cell Distribution Width 20.1 % (9.3-17.3); White Blood Count 6.2 T/CUMM (4-12)
[2018-03-31 07:53] LABS: Osmolality,Calculated 269.1 MOS/KG (273-304); Potassium 3.7 MMOL/L (3.5-5.1)
[2018-03-31] MEDS: MAGNESIUM OXIDE 400 MG TABLET PO SCH ×2 (10:11→14:55)
[2018-03-31] MEDS: amLODIPine 10 MG TABLET PO SCH (10:11)
[2018-03-31] MEDS: METOPROLOL TARTRATE 50 MG TABLET PO SCH (10:11)
[2018-03-31] MEDS: ISOSORBIDE MONONITRATE 30 MG TABLET PO SCH (10:12)
[2018-03-31] MEDS: CARBIDOPA/LEVODOPA 25-100 MG TABLET PO SCH (10:12)
[2018-03-31 11:56] VITALS: BP 146/75
== END 2018-03-31 15:40 | disposition swing bed (61) | DRG 193 ==
LOC: EDBD → EDUNIT# → N.ED 08:28 → N.EDINP 11:54 → SUATTDRO 11:54 → N.5E 12:50
PROVIDERS: ADMIT Internal Medicine Infectious Disease; ATTEND Internal Medicine